=== PATIENT | male | born 1965 | race Caucasian/White ===

== ENCOUNTER 2018-11-23 15:07 | Emergency (ER) | payer OTHER ==
[2018-11-23] MEDS ORDERED: DIPH/PERTUSS(ACELL)/TETANUS VAC/PF 0.5 ML SYR (>=10YO) IM ONE (15:41)
--- NOTE | 2018-11-23 15:47 | ER Document Report ---
HPI - HPI Time Seen by Provider: 11/23/18 15:38 Pain Level: 3 Notes: Patient is a 53-year-old male no significant past medical history who presents complaining of puncture wound to his left lateral dorsal hand by a ghulam screw. Patient states that he removed it in its entirety thereafter. He is able to move his hand without difficultly. Patient has noticed some mild swelling to the area. Denies drug allergies. No other concerns or complaints. Denies any headache, fever, URI, sore throat, chest pain, palpitations, syncope, cough, shortness of breath, wheeze, dyspnea, abdominal pain, nausea/vomiting/diarrhea, urinary retention, dysuria, hematuria, numbness/tingling, muscle paralysis/weakness, or rash. Unknown last tetanus. - ROS Systems Reviewed and Negative: Yes All other systems reviewed and negative Past Medical History - Social History Smoking Status: Unknown if Ever Smoked Family History: Reviewed & Not Pertinent Vertical Provider Document - CONSTITUTIONAL Agree With Documented VS: Yes Notes: PHYSICAL EXAMINATION: GENERAL: Well-appearing, well-nourished and in no acute distress. HEAD: Atraumatic, normocephalic. NECK: Normal range of motion, supple without lymphadenopathy. No midline tenderness. LUNGS: Breath sounds clear to auscultation bilaterally and equal. No wheezes rales or rhonchi. HEART: Regular rate and rhythm without murmurs, rubs, gallops. Musculoskeletal: Lt hand/wrist: + puncture site noted with dried blood present. + mild swelling to that area w/o fluctuance, induration, streaks, or discharge. No erythema, warmth, ecchymosis, deformity noted. N/V intact distal. FROM to passive/active at the fingers/wrist. Strength 5+/5 to honey processor. No scaphoid tenderness. No other bony tenderness. Extremities: No cyanosis, clubbing, or edema b/l. Peripheral pulses 2+. Capillary refill less than 3 seconds. NEUROLOGICAL: Normal speech, normal gait. Normal sensory, motor exams otherwise unremarkable PSYCH: Normal mood, normal affect. SKIN: see above. No rash - INFECTION CONTROL TRAVEL OUTSIDE OF THE [place] IN LAST 30 DAYS: No Course - Re-evaluation Re-evalutation: 11/23/18 15:45 Patient is an afebrile, well-hydrated, 53-year-old male who presents to the ED with a puncture wound left hand. Vitals are acceptable without any significant tachycardia, tachypnea, or hypoxia. PE is otherwise unremarkable for any neurovascular compromise, obvious tendon/ligament rupture, obvious fracture/dislocation, septic joint. X-ray was unremarkable for any acute pathology. Patient is nontoxic-appearing. No other labs or imaging warranted at this time based on H&P. Tdap updated today. Rx for keflex. Conservative measures otherwise for symptoms. Recheck with your PCM in 3-5 days. Consider consult orthopedics. Return to the ED with any worsening/concerning symptoms otherwise as reviewed in discharge. Patient is in agreement. - Vital Signs Vital signs: Temp Pulse Resp BP Pulse Ox 98.6 F 86 18 160/96 H 95 11/23/18 15:22 11/23/18 15:22 11/23/18 15:22 11/23/18 15:22 11/23/18 15:22 Discharge - Discharge Clinical Impression: Puncture wound of hand, left Qualifiers: Encounter type: initial encounter Foreign body presence: without foreign body Qualified Code(s): S61.432A - Puncture wound without foreign body of left hand, initial encounter Condition: Stable Disposition: HOME, SELF-CARE Instructions: Puncture Wound ([facility]) Additional Instructions: Keep the skin clean Wash with soap and water Tylenol/ibuprofen if needed Triple antibiotic ointment daily Take medication as directed Monitor for any worsening symptoms Recheck with your PCM in 3-5 days Consider consult with Orthopedics for ongoing/worsening symptoms Return to the ED with any worsening symptoms and/or development of fever, headache, chest pain, palpitations, syncope, shortness of breath, trouble yanick thing, abdominal pain, n/v/d, abscess, purulent discharge, red streaks, worsening swelling, or other worsening symptoms that are concerning to you. Prescriptions: Cephalexin Monohydrate [Keflex 500 mg Capsule] 500 mg PO TID #30 capsule Forms: Elevated Blood Pressure Referrals: [facility] ([facility]) [Provider Group] - Follow up as needed
--- NOTE | 2018-11-23 16:46 | RADIOLOGY REPORT (SQ) ---
EXAM DESCRIPTION: HAND LEFT 3 VIEWS COMPLETED DATE/TIME: 11/23/2018 4:27 pm REASON FOR STUDY: ghulam screw puncture lt lateral dorsal hand COMPARISON: None. EXAM PARAMETERS: NUMBER OF VIEWS: Three views. TECHNIQUE: AP, lateral and oblique radiographic images acquired of the left hand. LIMITATIONS: None. FINDINGS: MINERALIZATION: Normal. BONES: No acute fracture or dislocation. No worrisome bone lesions. JOINTS: No effusions. SOFT TISSUES: No soft tissue swelling. No foreign body. OTHER: No other significant finding. IMPRESSION: NEGATIVE STUDY OF THE LEFT HAND. NO RADIOGRAPHIC EVIDENCE OF ACUTE INJURY. TECHNICAL DOCUMENTATION: JOB ID: [id number] 1994 [employer]- All Rights Reserved Reading location - IP/workstation name: [email or web address]
[2018-11-23 16:56] VITALS: BP 160/88
== END 2018-11-23 16:57 | disposition home or self-care (01) ==
LOC: ER 15:07
DX: S61.432A Puncture wound without foreign body of left hand, initial encounter (principal); W26.8XXA Contact with other sharp object(s), not elsewhere classified, initial encounter; Z23 Encounter for immunization
CPT/HCPCS: 90715; 99283